=== PATIENT | male | born 1960 | race Caucasian/White ===

== ENCOUNTER → 2024-01-06 | Day surgery (SDC) | payer BC ==
[~2024-01-06] MED LIST: Propofol 200 MG/20 ML SDV IV ONE; Sodium Chloride 0.9% 10 ML Syringe FLUSH PRN
[2024-01-06] MEDS: Lactated Ringers 1,000 ML IV SCH (07:45)
[2024-01-06] MEDS: Simethicone Drops 40 MG/0.6 ML 30 ML Bottle ONE (08:10)
== END ==
LOC: FB.SDS 06:37
PROVIDERS: ATTEND Surgery
DX: Z12.11 Encounter for screening for malignant neoplasm of colon (principal); D12.0 Benign neoplasm of cecum; K57.30 Diverticulosis of large intestine without perforation or abscess without bleeding; I49.8 Other specified cardiac arrhythmias; Z88.5 Allergy status to narcotic agent; Z88.8 Allergy status to other drugs, medicaments and biological substances; Z79.899 Other long term (current) drug therapy
CPT/HCPCS: 00811; 45385; 88305; A9270; J2704; J7120